=== PATIENT | female | born 2000 | race Caucasian/White ===

== ENCOUNTER 2022-03-03 20:22 | Inpatient (IN) | payer MEDICAID ==
[~2022-03-03] VITALS: Ht 167.6 cm; Wt 65.8 kg
[2022-03-03] MEDS ORDERED: LORAZEPAM 2MG/ML CPJ IV ONE ×2 (20:45→21:15)
[2022-03-03] MEDS ORDERED: SODIUM CHLORIDE 0.9% 1,000 ML IV ONE (20:45)
[2022-03-03] MEDS ORDERED: LORAZEPAM 2MG/ML CPJ ONE (20:47)
[2022-03-03 21:10] LABS: BASOPHILS % 0.7 % (0.0-2.0); EOSINOPHILS % 3.2 % (0.0-5.0); HEMATOCRIT. 37.9 % (36.0-48.0); HEMOGLOBIN. 12.7 g/dL (12.0-16.0); LYMPHOCYTES % 37.5 % (20.0-50.0); MEAN CORPUSCULAR HEMOGLOBIN 30.5 pg (28.0-32.0); MEAN CORPUSCULAR VOLUME 90.9 fL (81.0-99.0); MEAN PLATELET VOLUME 9.5 fl (7.4-10.4); MONOCYTES % 11.1 % (2.0-8.0); NEUTROPHILS % 47.5 % (40.0-76.0); PLATELET 314 x1000/uL (130-400); RED BLOOD CELL COUNT 4.18 mill/uL (4.2-5.4); RED CELL DISTRIBUTION WIDTH 12.3 % (11.6-14.6)
[2022-03-03] MEDS ORDERED: LEVETIRACETAM 1000MG PREMIX 100 ML IV ONE (21:15)
[2022-03-03 21:20] LABS: CHLORIDE 105 mEq/L (98-107); HCG SCREEN NEGATIVE
[2022-03-03 21:27] LABS: ETHANOL BLOOD < 10 mg/dL
[2022-03-03 21:34] LABS: CLARITY URINE CLEAR (CLEAR); COLOR URINE YELLOW (YELLOW); KETONES URINE 1+ (NEGATIVE); LEUKOCYTE ESTERASE URINE NEGATIVE (NEGATIVE); NITRITE URINE NEGATIVE (NEGATIVE); OCCULT BLOOD URINE NEGATIVE (NEGATIVE); PROTEIN URINE 1+ (NEGATIVE); SPECIFIC GRAVITY URINE 1.018 (1.005-1.030); UROBILINOGEN URINE 0.2 E.U./dL (0.2-1.0)
[2022-03-03 21:46] LABS: *AMPHETAMINES SCREEN URINE NEGATIVE (NEGATIVE); *BARBITURATES SCREEN URINE NEGATIVE (NEGATIVE); *BENZODIAZEPINES SCREEN URINE NEGATIVE (NEGATIVE); *COCAINE SCREEN URINE NEGATIVE (NEGATIVE); METHADONE URINE SCREEN NEGATIVE (NEGATIVE); PHENCYCLIDINE URINE SCREEN NEGATIVE (NEGATIVE)
[2022-03-03 21:48] LABS: OPIATES URINE SCREEN PRESUMTIVE POSITIVE (NEGATIVE)
[2022-03-03 21:49] LABS: CANNABINOID URINE SCREEN PRESUMTIVE POSITIVE (NEGATIVE)
[2022-03-04] MEDS ORDERED: SODIUM CHLORIDE 0.9% 1,000 ML IV ONE ×2 (00:15→02:45)
[2022-03-04] MEDS ORDERED: ACETAMINOPHEN 325MG TABLET PO PRN (07:30)
[2022-03-04] MEDS ORDERED: IPRATROPIUM/ALBUTEROL 0.5-3(2.5)MG/3ML NEB NEB PRN (07:30)
[2022-03-04] MEDS ORDERED: NITROGLYCERIN 0.4MG TABLET SL SL PRN (07:30)
[2022-03-04] MEDS ORDERED: ONDANSETRON HCL 4MG/2ML INJ IV PRN (07:30)
[2022-03-04] MEDS ORDERED: CLONIDINE 0.1MG TABLET PO PRN (07:30)
[2022-03-04] MEDS ORDERED: DOCUSATE SODIUM 100MG CAPSULE PO PRN (07:30)
[2022-03-04] MEDS ORDERED: LORAZEPAM 2MG/ML CPJ IV PRN (07:30)
[2022-03-04] MEDS ORDERED: MAGNESIUM/ALUMINUM HYDROXIDE/SIMETHICONE 30ML UDC PO PRN (07:30)
[2022-03-04] MEDS ORDERED: GUAIFENESIN 200MG/10ML SUGAR FREE UDC PO PRN (07:30)
[2022-03-04] MEDS ORDERED: IPRATROPIUM BROMIDE (0.02%) 0.5MG/2.5ML NEB HHN PRN (07:45)
[2022-03-04] MEDS ORDERED: ALBUTEROL (0.083%) 2.5MG/3ML NEB HHN PRN (07:45)
[2022-03-04] MEDS: DEXT 5%/LACTATED RINGERS 1,000 ML IV SCH ×2 (07:59→08:29)
[2022-03-04] MEDS: FAMOTIDINE 20MG TABLET PO SCH ×2 (09:00→19:51)
[2022-03-04] MEDS ORDERED: LEVETIRACETAM 500MG PREMIX 100 ML IV SCH (09:00)
[2022-03-04 09:30] VITALS: BP 103/61
[2022-03-04 09:37] LABS: T4 FREE 0.98 ng/dL (0.76-1.46)
[2022-03-04 10:18] LABS: VITAMIN B12 SERUM 1057 pg/mL (211-911)
[2022-03-04 10:33] LABS: FOLIC ACID (FOLATE) SERUM > 20.00 ng/mL (>5.38)
[2022-03-04 11:00] VITALS: BP 103/51
[2022-03-04 12:00] VITALS: BP 101/58
[2022-03-04] MEDS ORDERED: PNEUMOCOCCAL 23-VAL P-SAC VAC 0.5 ML IM ONE (13:30)
[2022-03-04 16:00] VITALS: BP 93/64
[2022-03-04] MEDS ORDERED: CABE0.5T2 MT (18:21)
[2022-03-04] MEDS: ACETAMINOPHEN 325MG TABLET PO PRN (19:51)
[2022-03-04 20:00] VITALS: BP 89/50
[2022-03-04] MEDS ORDERED: ZOLPIDEM TARTRATE 5MG TABLET PO PRN (21:00)
[2022-03-04] MEDS: LEVETIRACETAM 500MG PREMIX 100 ML IV SCH (21:17)
[2022-03-05] VITALS: BP 87/43
[2022-03-05 04:00] VITALS: BP 88/57
[2022-03-05 05:34] LABS: BASOPHILS % 0.6 % (0.0-2.0); EOSINOPHILS % 3.9 % (0.0-5.0); HEMATOCRIT. 30.9 % (36.0-48.0); HEMOGLOBIN. 10.6 g/dL (12.0-16.0); LYMPHOCYTES % 35.3 % (20.0-50.0); MEAN CORPUSCULAR HEMOGLOBIN 30.2 pg (28.0-32.0); MEAN CORPUSCULAR VOLUME 87.4 fL (81.0-99.0); MEAN PLATELET VOLUME 8.8 fl (7.4-10.4); MONOCYTES % 8.9 % (2.0-8.0); NEUTROPHILS % 51.3 % (40.0-76.0); PLATELET 255 x1000/uL (130-400); RED BLOOD CELL COUNT 3.53 mill/uL (4.2-5.4); RED CELL DISTRIBUTION WIDTH 12.2 % (11.6-14.6)
[2022-03-05 05:35] LABS: CHLORIDE 111 mEq/L (98-107)
[2022-03-05] MEDS: DEXT 5%/LACTATED RINGERS 1,000 ML IV SCH ×2 (05:35→22:53)
[2022-03-05 05:54] LABS: PHOSPHORUS 3.1 mg/dL (2.5-4.9)
[2022-03-05 08:00] VITALS: BP 103/51
[2022-03-05] MEDS: LEVETIRACETAM 500MG PREMIX 100 ML IV SCH ×2 (09:49→20:21)
[2022-03-05] MEDS: FAMOTIDINE 20MG TABLET PO SCH ×2 (09:49→20:21)
[2022-03-05] MEDS: ACETAMINOPHEN 325MG TABLET PO PRN ×2 (10:18→19:06)
[2022-03-05 12:00] VITALS: BP 105/60
[2022-03-05 16:00] VITALS: BP 108/63
[2022-03-05 20:00] VITALS: BP 84/40
[2022-03-06] VITALS: BP 101/56
[2022-03-06 04:00] VITALS: BP 92/45
[2022-03-06] MEDS: ACETAMINOPHEN 325MG TABLET PO PRN (04:01)
[2022-03-06 08:00] VITALS: BP_SYST 103; BP_SYST 106; BP_DIAS 63; BP_DIAS 69
[2022-03-06] MEDS ORDERED: KEPP500 MT ×3 (08:35→11:37)
[2022-03-06] MEDS: LEVETIRACETAM 500MG PREMIX 100 ML IV SCH (09:45)
[2022-03-06] MEDS: FAMOTIDINE 20MG TABLET PO SCH (09:45)
[2022-03-06 11:04] VITALS: BP 106/63
[2022-03-06 12:00] VITALS: BP 106/63
== END 2022-03-06 12:30 | disposition home or self-care (01) | DRG 53 ==
LOC: ER 20:22 → EDBEDREQTM 03-04 00:13 → EDBEDREQ 03-04 00:13 → 7WST 03-04 06:29 → EDBEDREQTM 03-04 06:32 → EDBEDREQ 03-04 06:32
PROVIDERS: ADMIT Internal Medicine; ATTEND Internal Medicine
DX: G40.909 Epilepsy, unspecified, not intractable, without status epilepticus (principal); F12.10 Cannabis abuse, uncomplicated
CPT/HCPCS: 36415; 71045; 80053; 80061; 80156; 80165; 80184; 80185; 80305; 80320; 81003; 82607; 82746; 82962; 83036; 83540; 83550; 83735; 84100; 84439; 84443; 84703; 85025; 93005; 93970; 97162; 97165; 99291; J1953; J2060; J7030; G0480